=== PATIENT | female | born 1980 | race Caucasian/White ===

== ENCOUNTER 2016-08-20 00:31 | Emergency (ER) | payer BC ==
[2016-08-20 00:38] VITALS: TEMP 98.5
[2016-08-20] MEDS ORDERED: SODIUM CHLORIDE 0.9% 500 ML IV STA (00:50)
[2016-08-20] MEDS ORDERED: SODIUM CHLORIDE 0.9% 1,000 ML IV STA (00:50)
[2016-08-20] MEDS ORDERED: LORazepam 2 MG/ML SYRINGE IV STA (00:56)
[2016-08-20 01:46] LABS: Basophils # (A) 0.1 k/uL (0-0.2); Basophils % (A) 1 %; CH 33.5; CHCM 34.4; Eosinophils # (A) 0.1 k/uL (0-0.7); Eosinophils % (A) 1 %; HCT 45.2 % (34.0-46.0); HDW 2.12; HGB 15.4 gm/dL (11.4-16.0); Luc # (Auto) 0.19; Luc % (Auto) 2; Lymphocytes # (A) 3.2 k/uL (1.0-4.8); Lymphocytes % (A) 28 %; MCH 33.3 pg (25.0-35.0); MCHC 34.2 g/dL (31.0-37.0); MCV 97.6 fL (80.0-100.0); Mean Platelet Volume 6.8; Monocytes # (A) 0.5 k/uL (0-1.0); Monocytes % (A) 4 %; Neutrophils # (A) 7.6 k/uL (1.3-7.7); Neutrophils % (A) 66 %; RBC 4.63 m/uL (3.80-5.40); RDW 12.4 % (11.5-15.5); WBC 11.6 k/uL (3.8-10.6); WBC (Perox) 12.94
--- NOTE | 2016-08-20 01:54 | ED ---
General Adult HPI - General Chief complaint: Weakness Stated complaint: L Side Numbness Time Seen by Provider: 08/20/16 00:39 Source: patient, RN notes reviewed, old records reviewed Mode of arrival: wheelchair Limitations: no limitations - History of Present Illness Initial comments: [id number] female to the ER for evaluation of multiple nonspecific complaints, patient complaining of numbness and tingling left face left side of her body. Patient has history of neck and cervical surgery. No recent trauma. No specific neurological deficit just feeling or sensation of numbness. Patient states the pain in the symptoms started about 30 minutes prior to arrival. She is recently going and undergoing multiple medication changes. Denies any other headaches. - Related Data Home Medications Medication Instructions Recorded Confirmed Diazepam [Valium] 10 mg PO TID PRN 03/23/14 08/20/16 Ibuprofen [Motrin] 800 mg PO Q6HR PRN 03/23/14 08/20/16 oxyCODONE HCL/ACETAMINOPHEN 1 each PO Q6HR PRN 03/23/14 08/20/16 [Percocet 10-325 mg] Polyethylene Glycol 3350 [Miralax] 17 gm PO DAILY 03/15/16 08/20/16 Allergies Allergy/AdvReac Type Severity Reaction Status Date / Time codeine Allergy Rash/Hives Verified 08/20/16 00:38 tramadol HCl [From Ultracet] Allergy Itching Verified 08/20/16 00:38 duloxetine HCl AdvReac blurred Verified 08/20/16 00:38 [From Cymbalta] vision pregabalin [From Lyrica] AdvReac BLURRED Verified 08/20/16 00:38 VISION Review of Systems ROS Statement: Those systems with pertinent positive or pertinent negative responses have been documented in the HPI. ROS Other: All systems not noted in ROS Statement are negative. Past Medical History Additional Past Medical History / Comment(s): SLIGHT HEART MURMUR. SWOLLEN GROIN LYMPH NODES History of Any Multi-Drug Resistant Organisms: None Reported Past Surgical History: Tubal Ligation Additional Past Surgical History / Comment(s): NECK SX Past Anesthesia/Blood Transfusion Reactions: No Reported Reaction Past Psychological History: No Psychological Hx Reported Smoking Status: Current every day smoker Past Alcohol Use History: None Reported Additional Past Alcohol Use History / Comment(s): STARTED SMOKING AT AGE 13, SMOKES 1/2 PPD. Past Drug Use History: None Reported - Past Family History Father Family Medical History: Unable to Obtain Mother Family Medical History: Hyperlipidemia, Hypertension General Exam - General Exam Comments Initial Comments: NIH of 0 Limitations: no limitations General appearance: alert, in no apparent distress Head exam: Present: atraumatic, normocephalic, normal inspection Eye exam: Present: normal appearance, PERRL, EOMI. Absent: scleral icterus, conjunctival injection, periorbital swelling ENT exam: Present: normal exam, mucous membranes moist Neck exam: Present: normal inspection. Absent: tenderness, meningismus, lymphadenopathy Respiratory exam: Present: normal lung sounds bilaterally. Absent: respiratory distress, wheezes, rales, rhonchi, stridor Cardiovascular Exam: Present: regular rate, normal rhythm, normal heart sounds. Absent: systolic murmur, diastolic murmur, rubs, gallop, clicks GI/Abdominal exam: Present: soft, normal bowel sounds. Absent: distended, tenderness, guarding, rebound, rigid Extremities exam: Present: normal inspection, full ROM, normal capillary refill. Absent: tenderness, pedal edema, joint swelling, calf tenderness Back exam: Present: normal inspection Neurological exam: Present: alert, oriented X3, CN II-XII intact Psychiatric exam: Present: normal affect, normal mood Skin exam: Present: warm, dry, intact, normal color. Absent: rash Course Vital Signs 08/20/16 08/20/16 00:35 02:00 Temperature 98.5 F Pulse Rate 90 88 Respiratory 16 18 Rate Blood Pressure 138/83 126/72 O2 Sat by Pulse 97 96 Oximetry EKG Findings - EKG Comments: EKG Findings:: EKG shows normal sinus rhythm at 75, MD 140, QRS 92, QTC 402 Medical Decision Making - Medical Decision Making 36 female the ER for evaluation of weakness paresthesias left-sided facial weakness, patient symptoms actually are mildly improved at this time, lab work and CT negative. Patient will be discharged home - Lab Data Result diagrams: 08/20/16 01:30 08/20/16 01:30 Lab Results 08/20/16 08/20/16 08/20/16 Range/Units 01:30 01:30 01:30 WBC 11.6 H (3.8-10.6) k/uL RBC 4.63 (3.80-5.40) m/uL Hgb 15.4 (11.4-16.0) gm/dL Hct 45.2 (34.0-46.0) % MCV 97.6 (80.0-100.0) fL MCH 33.3 (25.0-35.0) pg MCHC 34.2 (31.0-37.0) g/dL RDW 12.4 (11.5-15.5) % Plt Count 218 (150-450) k/uL Neutrophils % 66 % Lymphocytes % 28 % Monocytes % 4 % Eosinophils % 1 % Basophils % 1 % Neutrophils # 7.6 (1.3-7.7) k/uL Lymphocytes # 3.2 (1.0-4.8) k/uL Monocytes # 0.5 (0-1.0) k/uL Eosinophils # 0.1 (0-0.7) k/uL Basophils # 0.1 (0-0.2) k/uL PT (9.0-12.0) sec INR (<1.1) APTT (22.0-30.0) sec Sodium 142 (137-145) mmol/L Potassium 3.5 (3.5-5.1) mmol/L Chloride 108 H (98-107) mmol/L Carbon Dioxide 22 (22-30) mmol/L Anion Gap 12 mmol/L BUN 11 (7-17) mg/dL Creatinine 0.80 (0.52-1.04) mg/dL Est GFR (MDRD) Af Amer >60 (>60 ml/min/1.73 sqM) Est GFR (MDRD) Non-Af >60 (>60 ml/min/1.73 sqM) Glucose 102 H (74-99) mg/dL Plasma Lactic Acid Cole (0.7-2.0) mmol/L Calcium 10.0 (8.4-10.2) mg/dL Phosphorus 2.5 (2.5-4.5) mg/dL Magnesium 2.1 (1.6-2.3) mg/dL Total Bilirubin 0.9 (0.2-1.3) mg/dL AST 20 (14-36) U/L ALT 19 (9-52) U/L Alkaline Phosphatase 38 (38-126) U/L Ammonia (<30) umol/L Total Creatine Kinase 89 (30-135) U/L CK-MB (CK-2) 0.9 (0.0-2.4) ng/mL CK-MB (CK-2) Rel Index 1.0 Troponin I <0.012 (0.000-0.034) ng/mL Total Protein 8.0 (6.3-8.2) g/dL Albumin 4.8 (3.5-5.0) g/dL TSH 1.920 (0.465-4.680) mIU/L Urine Color Urine Appearance (Clear) Urine pH (5.0-8.0) Ur Specific [place] (1.001-1.035) Urine Protein (Negative) Urine Glucose (UA) (Negative) Urine Ketones (Negative) Urine Blood (Negative) Urine Nitrite (Negative) Urine Bilirubin (Negative) Urine Urobilinogen (<2.0) mg/dL Ur Leukocyte Esterase (Negative) Urine RBC (0-5) /hpf Ur Squamous Epith Cells (0-4) /hpf Urine Bacteria (None) /hpf Urine Mucus (None) /hpf Urine Opiates Screen (NotDetected) Ur Oxycodone Screen (NotDetected) Urine Methadone Screen (NotDetected) Ur Propoxyphene Screen (NotDetected) Ur Barbiturates Screen (NotDetected) U Tricyclic Antidepress (NotDetected) Ur Phencyclidine Scrn (NotDetected) Ur Amphetamines Screen (NotDetected) U Methamphetamines Scrn (NotDetected) U Benzodiazepines Scrn (NotDetected) Urine Cocaine Screen (NotDetected) U Marijuana (THC) Screen (NotDetected) Serum Alcohol <10 mg/dL 08/20/16 08/20/16 08/20/16 Range/Units 01:30 01:30 01:58 WBC (3.8-10.6) k/uL RBC (3.80-5.40) m/uL Hgb (11.4-16.0) gm/dL Hct (34.0-46.0) % MCV (80.0-100.0) fL MCH (25.0-35.0) pg MCHC (31.0-37.0) g/dL RDW (11.5-15.5) % Plt Count (150-450) k/uL Neutrophils % % Lymphocytes % % Monocytes % % Eosinophils % % Basophils % % Neutrophils # (1.3-7.7) k/uL Lymphocytes # (1.0-4.8) k/uL Monocytes # (0-1.0) k/uL Eosinophils # (0-0.7) k/uL Basophils # (0-0.2) k/uL PT 10.5 (9.0-12.0) sec INR 1.0 (<1.1) APTT 26.3 (22.0-30.0) sec Sodium (137-145) mmol/L Potassium (3.5-5.1) mmol/L Chloride (98-107) mmol/L Carbon Dioxide (22-30) mmol/L Anion Gap mmol/L BUN (7-17) mg/dL Creatinine (0.52-1.04) mg/dL Est GFR (MDRD) Af Amer (>60 ml/min/1.73 sqM) Est GFR (MDRD) Non-Af (>60 ml/min/1.73 sqM) Glucose (74-99) mg/dL Plasma Lactic Acid Cole 0.8 (0.7-2.0) mmol/L Calcium (8.4-10.2) mg/dL Phosphorus (2.5-4.5) mg/dL Magnesium (1.6-2.3) mg/dL Total Bilirubin (0.2-1.3) mg/dL AST (14-36) U/L ALT (9-52) U/L Alkaline Phosphatase (38-126) U/L Ammonia <9 (<30) umol/L Total Creatine Kinase (30-135) U/L CK-MB (CK-2) (0.0-2.4) ng/mL CK-MB (CK-2) Rel Index Troponin I (0.000-0.034) ng/mL Total Protein (6.3-8.2) g/dL Albumin (3.5-5.0) g/dL TSH (0.465-4.680) mIU/L Urine Color Colorless Urine Appearance Clear (Clear) Urine pH 6.5 (5.0-8.0) Ur Specific [place] 1.001 (1.001-1.035) Urine Protein Negative (Negative) Urine Glucose (UA) Negative (Negative) Urine Ketones Negative (Negative) Urine Blood Small H (Negative) Urine Nitrite Negative (Negative) Urine Bilirubin Negative (Negative) Urine Urobilinogen <2.0 (<2.0) mg/dL Ur Leukocyte Esterase Negative (Negative) Urine RBC <1 (0-5) /hpf Ur Squamous Epith Cells <1 (0-4) /hpf Urine Bacteria Occasional H (None) /hpf Urine Mucus Rare H (None) /hpf Urine Opiates Screen Not Detected (NotDetected) Ur Oxycodone Screen Detected H (NotDetected) Urine Methadone Screen Not Detected (NotDetected) Ur Propoxyphene Screen Not Detected (NotDetected) Ur Barbiturates Screen Not Detected (NotDetected) U Tricyclic Antidepress Not Detected (NotDetected) Ur Phencyclidine Scrn Not Detected (NotDetected) Ur Amphetamines Screen Not Detected (NotDetected) U Methamphetamines Scrn Not Detected (NotDetected) U Benzodiazepines Scrn Detected H (NotDetected) Urine Cocaine Screen Not Detected (NotDetected) U Marijuana (THC) Screen Not Detected (NotDetected) Serum Alcohol mg/dL Disposition Clinical Impression: Paresthesia Disposition: HOME SELF-CARE Condition: Good Instructions: Paresthesia (ED) Referrals: Rico Sutton MD [Primary Care Provider] - 1-2 days
--- NOTE | 2016-08-20 02:03 | CT ---
PROCEDURE: CT HEAD Without Contrast HISTORY: 36-year-old female with weakness. COMPARISON: None TECHNIQUE: CT imaging was obtained through the head. Coronal and sagittal reformations were performed. DOSE: Total Exam volume computed tomography dose index (CTDIvol) = 57.4 mGy and Dose Length Product (DLP) = 1098.8 mGY-cm. This CT exam was performed using one or more of the following dose reduction techniques: automated exposure control, adjustment of the mA and/or kV according to patient size, and/or use of iterative reconstruction technique. FINDINGS: There is no evidence of acute intracranial hemorrhage, mass effect, or midline shift. The ventricles, sulci, and cisternal spaces are within normal limits. The bernardo-white matter differentiation is preserved. The bony structures are intact. Visualized paranasal sinuses and mastoid air cells are clear. Visualized portions of the orbits are within normal limits. IMPRESSION: 1. No CT evidence of acute intracranial abnormality.
[2016-08-20 02:04] LABS: Partial Thromboplastin Time 26.3 sec (22.0-30.0); Prothrombin Time 10.5 sec (9.0-12.0)
[2016-08-20 02:07] LABS: Creatine Kinase 89 U/L (30-135)
[2016-08-20 02:09] LABS: ALT 19 U/L (9-52); AST 20 U/L (14-36); Alcohol <10 mg/dL; Alkaline Phosphatase 38 U/L (38-126); Anion Gap 12 mmol/L; Blood Urea Nitrogen 11 mg/dL (7-17); Carbon Dioxide 22 mmol/L (22-30); Chloride 108 mmol/L (98-107); Glucose 102 mg/dL (74-99); Magnesium 2.1 mg/dL (1.6-2.3); Non-African American GFR(MDRD) >60 (>60 ml/min/1.73 sqM); Phosphorous 2.5 mg/dL (2.5-4.5); Potassium 3.5 mmol/L (3.5-5.1); Sodium 142 mmol/L (137-145); Total Bilirubin 0.9 mg/dL (0.2-1.3)
[2016-08-20 02:18] LABS: Ammonia <9 umol/L (<30)
[2016-08-20 02:18] LABS: Appearance,Urine Clear (Clear); Bacteria,Urine Occasional /hpf; Bilirubin,Urine Negative (Negative); Glucose,Urine (UA) Negative (Negative); Ketones,Urine Negative (Negative); Leukocyte Esterase,Urine Negative (Negative); Mucus,Urine Rare /hpf; Nitrite,Urine Negative (Negative); PH, Urine 6.5 (5.0-8.0); Particle Count 402; Protein,Urine Negative (Negative); RBC,Urine <1 /hpf (0-5); Specific Gravity,Urine 1.001 (1.001-1.035); Squamous Epithelial Cell,Urine <1 /hpf (0-4); UA Billing (MACRO vs. MICRO) MICRO; Urobilinogen,Urine <2.0 mg/dL (<2.0)
[2016-08-20 02:20] LABS: Creatine Kinase MB 0.9 ng/mL (0.0-2.4); Troponin I <0.012 ng/mL (0.000-0.034)
[2016-08-20 02:59] VITALS: BP 126/72; PULSE 88; RESP 18
== END 2016-08-20 02:50 | disposition home or self-care (01) ==
LOC: EC 00:31
DX: R20.2 Paresthesia of skin (principal); F17.200 Nicotine dependence, unspecified, uncomplicated; Z53.20 Procedure and treatment not carried out because of patient's decision for unspecified reasons; Z88.5 Allergy status to narcotic agent; Z88.6 Allergy status to analgesic agent; Z88.8 Allergy status to other drugs, medicaments and biological substances; Z79.899 Other long term (current) drug therapy
CPT/HCPCS: 36415; 70450; 80053; 80306; 80320; 81001; 82140; 82550; 82553; 83605; 83735; 84100; 84443; 84484; 85025; 85610; 85730; 87086; 93005; 96360; 99285

== ENCOUNTER → 2016-08-21 | Outpatient (CLI) | payer BC ==
--- NOTE | 2016-08-21 13:03 | MR ---
Thoracic spine MRI HISTORY: Radiculopathy Multiplanar multisequence imaging through the thoracic spine No comparisons Slight spinal curvature. There is no significant central canal stenosis or foraminal encroachment. No evident disc herniation. Thoracic vertebral bodies show preserved height, alignment, and bone marrow signal. Disc spaces are maintained. Thoracic cord signal is normal. There are some facet arthropathy changes present at the lower thoracic spine is some encroachment on the posterior lateral thecal sac . Postop changes noted incidentally in the cervical spine. IMPRESSION: Facet arthropathy. No evident disc herniation. There is a slight spinal curvature.
--- NOTE | 2016-08-21 14:25 | MR ---
EXAMINATION TYPE: MR cervical spine wo/w con DATE OF EXAM: 08/21/2016 11:01 AM COMPARISON: Prior cervical spine 03 May 2014 HISTORY: Radiculopathy, headache TECHNIQUE: Multiplanar, multisequence images of the cervical spine were acquired utilizing 10 mL intravenous Mul tiHance gadolinium contrast. Diffusion weighted imaging was performed. Susceptibility artifact due to patient's surgical hardware limits the evaluation of the exam. C2-C3: No evidence for degenerative disc disease. No disc bulge/herniation or protrusion. No Canal stenosis. Foramina are patent bilaterally. C3-C4: Suspect there is a posterior disc bulge causing anterior mass effect on the thecal sac, only m ild spinal stenosis, no significant foraminal encroachment. C4-C5: Limited for evaluation, no left-sided foraminal encroachment. C5-C6: Limited for evaluation, no definite foraminal encroachment. C6-C7: Small central posterior disc protrusion present. C7-T1: No evidence for degenerative disc disease. No disc bulge/herniation or protrusion. No Canal stenosis. Foramina are patent bilaterally. Cervical segments are intact. There is normal alignment. Cervical spinal cord is of normal signal. Craniovertebral junction relationships are within normal limits. Patient is status post disc replac ement at C4-5 and C5-6. There is no abnormal. IMPRESSION: Exam is limited evaluation due to hardware.
== END | disposition home or self-care (01) ==
LOC: RADMRIMAIN 09:48
PROVIDERS: ATTEND Nurse Practitioner Adult Health
DX: M46.96 Unspecified inflammatory spondylopathy, lumbar region (principal); M54.12 Radiculopathy, cervical region
CPT/HCPCS: 72146; 72156; A9577

== ENCOUNTER → 2018-01-15 | Outpatient (CLI) | payer BC ==
--- NOTE | 2018-01-16 07:22 | US ---
EXAMINATION TYPE: US kidneys/renal and bladder DATE OF EXAM: 01/15/2018 COMPARISON: CT CLINICAL HISTORY: R31.9 hematuria. EXAM MEASUREMENTS: Right Kidney: 9.7 x 4.3 x 4.9 cm Left Kidney: 11.1 x 6.4 x 6.3 cm Right Kidney: There is mild pelvicocaliectasis on the right. Left Kidney: No hydronephrosis or masses seen Bladder: wnl Bilateral Jets seen: Yes IMPRESSION: Mild pelvicocaliectasis on the right. If symptoms persist consider follow-up noncontrast CT abdomen p linh
== END | disposition home or self-care (01) ==
LOC: RADUSWWP 16:11
PROVIDERS: ATTEND Family Medicine
DX: N28.89 Other specified disorders of kidney and ureter (principal)
CPT/HCPCS: 76770

== ENCOUNTER → 2018-02-03 | Outpatient (CLI) | payer BC ==
--- NOTE | 2018-02-03 09:09 | CT ---
EXAMINATION TYPE: CT abdomen wo con DATE OF EXAM: 02/03/2018 COMPARISON: 08/16/2015 and renal ultrasound 01/15/2018 HISTORY: 37-year-old female Pain started on the Lt radiates to the Rt TECHNIQUE: Contiguous axial scanning of the abdomen without IV contrast. Coronal and sagittal reconst ructions performed. CT DLP: 161 mGycm Automated exposure control for dose reduction was used. FINDINGS: Heart normal size without pericardial effusion. Lung bases clear without pleural effusion. Noncontrast appearance of the liver, adrenal glands, kidneys, spleen, and pancreas show no gross abno rmality. Assessment of the solid abdominal viscera is limited without IV contrast. With attention to the kidneys, no contour deforming lesion, renal calculi, or hydronephrosis is seen. The pelvocaliectasis seen on recent ultrasound has resolved. No dilated small bowel, free fluid, or free air. Scattered eogk-ou-cacdsces stool. No pericolonic inf lammatory change within the visualized upper abdomen. The pelvis is not imaged. Bones: No osseous destructive process. IMPRESSION: CT OF THE ABDOMEN ONLY. NO NEPHROLITHIASIS OR HYDRONEPHROSIS. THE PELVICALIECTASIS SEEN ON THE PATIEN T'S RECENT ULTRASOUND HAS RESOLVED.
== END | disposition home or self-care (01) ==
LOC: RADCTMAIN 06:56
PROVIDERS: ATTEND Family Medicine
DX: N20.0 Calculus of kidney (principal)
CPT/HCPCS: 74150

== ENCOUNTER → 2018-06-15 | Outpatient (CLI) | payer BC ==
--- NOTE | 2018-06-15 10:10 | US ---
EXAMINATION TYPE: US abdomen complete DATE OF EXAM: 06/15/2018 COMPARISON: CT & US 2018 CLINICAL HISTORY: R10.9 Abdominal Pain. Intermittent abdomen and back pain and nausea x couple months EXAM MEASUREMENTS: Liver Length: 14.6 cm Gallbladder Wall: 0.1 cm CBD: 0.4 cm Spleen: 10.0 cm Right Kidney: 10.4 x 4.8 x 4.7 cm Left Kidney: 10.9 x 5.4 x 4.5 cm Pancreas: wnl Liver: wnl Gallbladder: wnl Evidence for sonographic Hook's sign: no CBD: wnl Spleen: wnl Right Kidney: wnl Left Kidney: wnl Upper IVC: wnl Abd Aorta: wnl The liver is homogenous. The intrahepatic portion of the IVC and proximal abdominal aorta are within normal limits. There is no evidence of cholelithiasis. Common bile duct is unremarkable. The visu alized portions of the pancreas are homogenous. The spleen is unremarkable. Kidneys are symmetric a nd free of hydronephrosis. No renal lesions are seen. IMPRESSION: No sonographic evidence of cholelithiasis nor acute cholecystitis. HIDA scan with CCK cou ld be performed to evaluate for biliary dyskinesia and/or chronic cholecystitis if there is further c linical concern.
== END ==
LOC: RADUSWWP 07:38
PROVIDERS: ATTEND Internal Medicine
DX: R10.9 Unspecified abdominal pain (principal)
CPT/HCPCS: 76700

== ENCOUNTER → 2018-07-14 | Outpatient (CLI) | payer BC ==
--- NOTE | 2018-07-15 07:33 | US ---
EXAMINATION TYPE: US transvaginal DATE OF EXAM: 07/14/2018 COMPARISON: US CLINICAL HISTORY: N92.0 Menorrhagia. Patient state had 3 weeks on menstrual cycle for June; on medic ation Percocet and Pepcid; was taking Naprosyn which was recently discontinued per physician TECHNIQUE: Transvaginal (TV). per order. Date of LMP: 06/19/18 EXAM MEASUREMENTS: Uterus: 7.9 x 5.7 x 5.4 cm Endometrial Stripe: 1.2 cm Right Ovary: 4.1 x 2.4 x 2.2 cm Left Ovary: 3.2 x 2.1 x 2.0 cm 1. Uterus: Small Nabothian cyst seen in cervix; prominent vein is noted at KVNG and laterally and sug gests pelvic congestion syndrome 2. Endometrium: thickness is wnl for day 26 LMP 3. Right Ovary:enlarged ovary; large simple cyst = 3.7 x 2.0 x 1.5cm 4. Left Ovary: multifollicular with largest as simple cyst = 2.1 x 1.6 x 1.1cm. 5. Bilateral Adnexa: small amount of free fluid seen medial to right ovary = 1.2 x 0.7 x 0.8cm; and medial to left ovary = 0.6 x 3.0 x 1.8cm. 6. Posterior cul-de-sac: wnl IMPRESSION: 1. A small amount of free fluid in the pelvis with multiple bilateral ovarian cysts the largest is se en on the right measuring 3.7 cm. 2. Prominent pelvic veins can be associated with pelvic varices or pelvic congestion syndrome.
== END | disposition home or self-care (01) ==
LOC: RADUSWWP 16:20
PROVIDERS: ATTEND Family Medicine
DX: N83.201 Unspecified ovarian cyst, right side (principal); N83.202 Unspecified ovarian cyst, left side
CPT/HCPCS: 76830

== ENCOUNTER 2018-11-12 08:00 | Day surgery (SDC) | payer BC ==
[~2018-11-12 08:00] MED LIST: PREMYELOGRAM MEDICATION REVIEW 1 EACH MISC PO PRN
[2018-11-12] MEDS ORDERED: DIAZEPAM 5 MG TAB PO STA (08:45)
[2018-11-12 08:56] LABS: Mean Platelet Volume 7.6; Platelet Count 270 k/uL (150-450)
[2018-11-12 09:02] VITALS: TEMP 98.1
[2018-11-12] MEDS: HYDROcodone/APAP 5-325MG 1 EACH TAB PO PRN ×2 (10:33→12:59)
--- NOTE | 2018-11-12 10:35 | CT ---
EXAMINATION TYPE: CT cervical spine postmyelogram DATE OF EXAM: 11/12/2018 COMPARISON: MRI 08/21/2016 HISTORY: Cervical Radiculopathy CT DLP: 283.6 mGycm Automated exposure control for dose reduction was used. CONTRAST: Performed with IV Contrast, patient injected with 7 cc mL of Isovue M300. FINDINGS: There is contrast seen within the thecal sac surrounding the cervical spinal cord. There is evidence of postsurgical change at levels C4-5 and C5-C6. Straightening of the cervical spine likely is postsu rgical. At C2-C3 no disc herniation or canal stenosis. Neural foramina patent. C3-C4 there is anterior hypertrophic spurring. Minimal central disc bulging. No canal stenosis or spi nal cord contact. Neural foramina are patent. Mild uncovertebral joint hypertrophy bilaterally. At C4-C5 there is postsurgical change. There is artifact which does distort the image but grossly no evidence of disc herniation or foraminal encroachment. No Canal stenosis. At C5-C6 there is postsurgical change. No obvious disc herniation or canal stenosis. At C6-C7 there is a attenuation broad-based left paracentral which could represent a small disc protr usion. There is indentation of the thecal sac. No spinal cord contact is seen although there is displ acement of the thecal sac. Best noted on axial image 59 and sagittal image 37. At C7-T1 there is no disc herniation or canal stenosis. IMPRESSION: 1. Postsurgical changes with no evidence of disc herniation or canal stenosis at the levels of the ponce rgery. 2. There is a left paracentral broad-based thecal sac impression at C6-C7 as discussed above may repr esent a disc herniation. This effaces the thecal sac paracentrally to left. No spinal cord contact al though there is displacement of the thecal sac and its contents. 3. Small broad-based central disc bulge C3-C4 with no evidence of canal stenosis. Mild thecal sac com pression is stable relative to the prior MRI.
--- NOTE | 2018-11-12 10:48 | FL ---
Fluoroscopic-guided myelogram: CLINICAL HISTORY: Neck pain FINDINGS: The procedure was explained to the patient. The risks, complications, benefits and alternatives were discussed and any questions were answered. Informed consent was obtained. Patient was placed prone on the fluoroscopic table and prepped and draped in the usual sterile fashion. Utilizing a 25 gauge needle access into the thecal sac at the L3-L4 level was achieved with a single pass and there is in stillation of approximately 7 cc of Omnipaque 300. Patient was premedicated for history of allergy. Approximately 2.4 minutes of fluoroscopy utilized. Contrast column was manipulated into the cervical spine region. Patient was stable throughout the procedure. Approximately 4 images submitted. All elements of maximal barrier and sterile technique were utilized. IMPRESSION: 1. Successful fluoroscopic-guided myelogram. CT to follow.
[2018-11-12 14:42] VITALS: PULSE 78
[2018-11-12 16:55] VITALS: BP 107/67; RESP 20
== END 2018-11-12 14:00 | disposition home or self-care (01) ==
LOC: RADPROMAIN 08:00
PROVIDERS: ATTEND Family Medicine
DX: M50.11 Cervical disc disorder with radiculopathy, high cervical region (principal)
CPT/HCPCS: 85049; 85610; 36415; 62302; 72126; Q9967

== ENCOUNTER → 2018-11-30 | Outpatient (CLI) | payer BC | END | disposition home or self-care (01) | LOC: RADNMMAIN 06:55 | PROVIDERS: ATTEND Surgery Plastic and Reconstructive Surgery | DX: Z53.9 Procedure and treatment not carried out, unspecified reason (principal) ==

== ENCOUNTER 2018-12-16 08:36 | Day surgery (SDC) | payer BC ==
[2018-12-15 08:47] VITALS: BMI 18.0
[~2018-12-16 08:36] MED LIST changes: +LACTATED RINGERS 1,000 ML IV SCH; -PREMYELOGRAM MEDICATION REVIEW 1 EACH MISC PO PRN
[2018-12-16 09:08] VITALS: RESP 18; TEMP 98.2
[2018-12-16] MEDS ORDERED: LIDOCAINE 1% 20 ML VIAL (10MG/ML) FOR IV START INTRADERMA ONE (09:08)
[2018-12-16] MEDS ORDERED: PROPOFOL 10 MG/ML 20 ML VIAL IV ONE (09:16)
[2018-12-16] MEDS ORDERED: LIDOCAINE 1% INJ 10MG/ML (20 ML MDV) ONE (09:16)
--- NOTE | 2018-12-16 09:20 | P.GSHP ---
History of Present Illness H&P Date: 12/16/18 CHIEF COMPLAINT: GERD and change in bowel habits HISTORY OF PRESENT ILLNESS: The patient is a 38-year-old female who presents with gastroesophageal reflux disease and change in bowel habits. Upper and lower endoscopy were offered for further evaluation and management. PAST MEDICAL HISTORY: Please see list. PAST SURGICAL HISTORY: Please see list. MEDICATIONS: Please see list. ALLERGIES: Please see list. SOCIAL HISTORY: No illicit drug use FAMILY HISTORY: No reports of Crohn disease or ulcerative colitis. REVIEW OF ORGAN SYSTEMS: CONSTITUTIONAL: No reports of fevers or chills. PHYSICAL EXAM: VITAL SIGNS: Stable GENERAL: Well-developed pleasant in no acute distress. HEENT: No scleral icterus. Extraocular movements grossly intact. Moist buccal mucosa. NECK: Supple without lymphadenopathy. CHEST: Unlabored respirations. Equal bilateral excursions. CARDIOVASCULAR: Regular rate and rhythm. Distal 2+ pulses. ABDOMEN: Soft, nondistended. MUSCULOSKELETAL: No clubbing, cyanosis, or edema. ASSESSMENT: 1. Gastroesophageal reflux disease 2. Change in bowel habits PLAN: 1. Recommend proceeding with an upper and lower endoscopy Past Medical History Past Medical History: Fibromyalgia, GERD/Reflux, Musculoskeletal Disorder Additional Past Medical History / Comment(s): heart murmur, swollen groin lymph nodes, back/neck pain, fast heart rate at times, frequent epigastric pain History of Any Multi-Drug Resistant Organisms: None Reported Past Surgical History: Tubal Ligation Additional Past Surgical History / Comment(s): neck surgery, lymph node biopsy Past Anesthesia/Blood Transfusion Reactions: Previous Problems w/ Anesthesia Additional Past Anesthesia/Blood Transfusion Reaction / Comment(s): possibly a problem w/versed, might have had during lymph node biopsy had to be given benadryl during procedure Smoking Status: Current every day smoker - Past Family History Father Family Medical History: Cancer, Hypertension Additional Family Medical History / Comment(s): lung cancer Mother Family Medical History: Hyperlipidemia, Hypertension Medications and Allergies Home Medications Medication Instructions Recorded Confirmed Type oxyCODONE HCL/ACETAMINOPHEN 1 each PO TID PRN 03/23/14 12/16/18 History [Percocet 10-325 mg] Propranolol [Inderal] 10 mg PO BID PRN 11/04/18 12/16/18 History Allergies Allergy/AdvReac Type Severity Reaction Status Date / Time codeine Allergy Rash/Hives Verified 12/16/18 08:52 Iodinated Contrast- Oral and Allergy Rash/Hives Verified 12/16/18 08:52 IV Dye tramadol HCl [From Ultracet] Allergy Itching Verified 12/16/18 08:55 duloxetine HCl AdvReac blurred Verified 12/16/18 08:52 [From Cymbalta] vision midazolam [From Versed] AdvReac Unknown Verified 12/16/18 08:55 pregabalin [From Lyrica] AdvReac BLURRED Verified 12/16/18 08:52 VISION Surgical - Exam Vital Signs Temp Pulse Resp BP Pulse Ox 98.2 F 94 18 115/63 99 12/16/18 09:07 12/16/18 09:07 12/16/18 09:07 12/16/18 09:07 12/16/18 09:07
--- NOTE | 2018-12-16 09:32 | P.PCN ---
Date of Procedure: 12/16/18 Description of Procedure: PREOPERATIVE DIAGNOSIS: Gastroesophageal reflux disease. POSTOPERATIVE DIAGNOSIS: Gastritis. Gastroesophageal reflux disease. OPERATION: Esophagogastroduodenoscopy with biopsies along antrum. SURGEON: Katya Ornelas MD ANESTHESIA: MAC. INDICATIONS: The patient is a 38-year-old female who presents with a history of reflux disease. Benefits and risks of the procedure were described. Informed consent was obtained. DESCRIPTION: The patient was brought into the endoscopy suite and laid in the left lateral decubitus position. An Olympus gastroscope was passed along the posterior oropharynx down to the distal esophagus where the squamocolumnar junction was encountered at 40 cm from the incisors. The stomach was entered and no bile reflux was found. Additional findings are listed below. Biopsies with cold forceps were obtained of the antrum. The first through third portion of the duodenum was examined and unremarkable. Retroflexion of the scope confirmed Hill grade 2 lower esophageal valve. The squamocolumnar junction demonstrated LA grade B erosive esophagitis. The stomach was desufflated. The patient tolerated the procedure well. FINDINGS: Squamocolumnar junction 40 cm from the incisors. Diaphragmatic hiatus at 40 cm. Hill grade 2 lower esophageal valve. LA grade B erosive esophagitis. No active duodenitis. Chronic gastritis RECOMMENDATIONS: Upper endoscopy as needed.
--- NOTE | 2018-12-16 09:46 | P.PCN ---
Date of Procedure: 12/16/18 Description of Procedure: PREOPERATIVE DIAGNOSIS: Change in bowel habits POSTOPERATIVE DIAGNOSIS: Change in bowel habits OPERATION: Colonoscopy to the ileocecal valve and appendiceal orifice. SURGEON: Katya Ornelas MD. ANESTHESIA: MAC. INDICATIONS: The patient is a 38-year-old female who presents with change in bowel habits. Benefits and risks were described and informed consent was obtained. DESCRIPTION OF PROCEDURE: The patient had undergone Suprep. She had been brought into the operating room and laid in the left lateral decubitus position. After adequate intravenous sedation, the rectum was examined with 2% lidocaine jelly. No external hemorrhoids were encountered. The rectal tone was within normal limits. No lesions were palpated in the rectal vault. An Olympus colonoscope was advanced until the ileocecal valve and appendiceal orifice were clearly viewed. The prep was excellent with clear visualization of the mucosal folds. The scope was removed with visualization of each mucosal fold. No scattered diverticulosis was encountered. No colonic polyps were found. No evidence of focal colitis was found. Retroflexion of the scope demonstrated no internal hemorrhoids without active bleeding or inflammation. The colon was desufflated. The patient had tolerated the procedure well. Withdrawal time was over 6 minutes. FINDINGS: Aronchick preparation quality scale 1 (1-5) No internal hemorrhoids No external prolapsed hemorrhoids. No arteriovenous malformations. No adenomatous polyps. No focal colitis. RECOMMENDATIONS: Lower endoscopy per screening guidelines, 5-10 years, 2023 to 2028 Plan - Discharge Summary Discharge Rx Participant: No New Discharge Prescriptions: No Action oxyCODONE HCL/ACETAMINOPHEN [Percocet 10-325 mg] 1 each PO TID PRN PRN Reason: Pain Propranolol [Inderal] 10 mg PO BID PRN PRN Reason: Heart Rate - High Discharge Medication List oxyCODONE HCL/ACETAMINOPHEN [Percocet 10-325 mg] 1 each PO TID PRN 03/23/14 [History] Propranolol [Inderal] 10 mg PO BID PRN 11/04/18 [History] Follow up Appointment(s)/Referral(s): Katya Ornelas MD [STAFF PHYSICIAN] - 01/05/19 Patient Instructions/Handouts: Gastroesophageal Reflux Disease (DC) Activity/Diet/Wound Care/Special Instructions: Repeat lower endoscopy at age 43 to 48 Discharge Disposition: HOME SELF-CARE
[2018-12-16 10:36] VITALS: BP 103/60; PULSE 82
== END 2018-12-16 10:38 | disposition home or self-care (01) ==
LOC: ORWHC2ENDO 08:36
PROVIDERS: ATTEND Surgery Plastic and Reconstructive Surgery
DX: K22.10 Ulcer of esophagus without bleeding (principal); K29.50 Unspecified chronic gastritis without bleeding; R19.4 Change in bowel habit; K21.9 Gastro-esophageal reflux disease without esophagitis; M79.7 Fibromyalgia; F17.210 Nicotine dependence, cigarettes, uncomplicated; R01.0 Benign and innocent cardiac murmurs; Z98.51 Tubal ligation status; Z82.49 Family history of ischemic heart disease and other diseases of the circulatory system; Z80.1 Family history of malignant neoplasm of trachea, bronchus and lung; Z79.891 Long term (current) use of opiate analgesic; Z88.5 Allergy status to narcotic agent; Z88.8 Allergy status to other drugs, medicaments and biological substances; Z91.041 Radiographic dye allergy status
CPT/HCPCS: 81025; 88305; 45378; 43239; J2001; J2704

== ENCOUNTER → 2021-06-26 | Outpatient (CLI) | payer BC ==
--- NOTE | 2021-06-26 16:34 | US ---
EXAMINATION TYPE: US transvaginal DATE OF EXAM: 06/26/2021 COMPARISON: 07/14/2018 CLINICAL HISTORY: 41-year-old female R10.2 Pelvic pain. Pelvic pain x couple months, 4, para 3, history of tubal ligation TECHNIQUE: Transvaginal exam only per ordering physician Date of LMP: 2-3 weeks ago FINDINGS: EXAM MEASUREMENTS: Uterus: 8.6 x 5.1 x 6.2 cm Endometrial Stripe: 1.4 cm Right Ovary: 4.2 x 1.5 x 1.9 cm Left Ovary: 4.7 x 1.8 x 2.0 cm 1. Uterus: retroverted, mildly heterogeneous myometrium 2. Endometrium: measures at the upper limits of normal 3. Right Ovary: wnl 4. Left Ovary: wnl 5. Bilateral Adnexa: Mild free fluid in right adnexa 6. Posterior cul-de-sac: Trace free fluid IMPRESSION: 1. Retroverted uterus with endometrial stripe is thickened to the upper limits of normal at 1.4 cm. T his should correspond to the late secretory phase of the menstrual cycle. 2. Follicular change in both ovaries. 3. Trace cul-de-sac free fluid and mild free fluid in the right adnexa probably physiologic.
== END | disposition home or self-care (01) ==
LOC: RADUSWWP 12:59
PROVIDERS: ATTEND Family Medicine
DX: N85.4 Malposition of uterus (principal)
CPT/HCPCS: 76830

== ENCOUNTER → 2021-11-28 | Outpatient (CLI) | payer BC ==
--- NOTE | 2021-11-29 07:17 | US ---
EXAMINATION TYPE: US thyroid st tissue head/neck DATE OF EXAM: 11/28/2021 COMPARISON: NONE CLINICAL HISTORY: F45.8 SOMATOFORM DISORDERS. Patient states feeling something in neck. GLAND SIZE: Right Lobe: 4.5 x 1.6 x 1.3 cm Overall Parenchyma: homogenous Left Lobe: 4.2 x 1.7 x 1.6 cm Overall Parenchyma: homogeneous Isthmus Thickness: 0.2 cm NODULES RIGHT: # of nodules measured on right: 3 1. 0.7 X 0.5 x 0.4 cm, upper mid, mixed cystic and solid, isoechoic nodule, which is wider than silas l, with ill-defined margins, without echogenic foci. Prior size: no prior 2. 0.8 X 0.6 x 0.5 cm, mid , mixed cystic and solid, isoechoic nodule, which is wider than tall, wi th ill-defined margins, without echogenic foci. Prior size: No prior 3. 1.0 X 0.7 x 0.7 cm, mid lateral, mixed cystic and solid, hyperechoic nodule, which is wider than tall, with smooth margins, without echogenic foci. Prior size: No prior LEFT: # of nodules measured on left: 3 1. 1.2 X 1.0 x 0.9 cm, upper mid, mixed cystic and solid, hyperechoic nodule, which is wider than t all, with ill-defined margins, without echogenic foci. Prior size: no prior 2. 0.8 X 0.5 x 0.5 cm, mid lateral, mixed cystic and solid, hypoechoic nodule, which is wider than tall, with ill-defined margins, without echogenic foci. Prior size: no prior 3. 0.6 X 0.8 x 0.4 cm, lower mid, cystic or almost completely cystic, anechoic nodule, which is wid er than tall, with smooth margins, without echogenic foci. Prior size: no prior ISTHMUS: # of nodules measured in the isthmus: 0 Bilateral neck scanned, no evidence of lymphadenopathy. IMPRESSION: Stable nonspecific thyroid nodularity.
== END | disposition home or self-care (01) ==
LOC: RADUSWWP 15:47
PROVIDERS: ATTEND Family Medicine
DX: E04.2 Nontoxic multinodular goiter (principal); F45.8 Other somatoform disorders
CPT/HCPCS: 76536

== ENCOUNTER → 2022-01-03 | Outpatient (CLI) | payer BC ==
--- NOTE | 2022-01-03 17:21 | CT ---
EXAMINATION TYPE: CT abdomen pelvis wo con CT DLP: 497 mGycm, Automated exposure control for dose reduction was used. DATE OF EXAM: 01/03/2022 5:11 PM COMPARISON: CT abdomen pelvis most recent from . CLINICAL INDICATION:Female, 41 years old with history of Z87.891 personal hx of tobacco use; abdomina l pain poss. Ventral hernia TECHNIQUE: Standard CT of the abdomen and pelvis without IV or oral contrast. Lack of IV or oral co ntrast limits evaluation of solid and hollow organ viscera. Coronal and sagittal reformats were perfo rmed. FINDINGS: Evaluation is limited due to paucity of intraabdominal fat and lack of IV contrast. LOWER CHEST: Right middle lobe and lingular scarring. ABDOMEN LIVER: Unremarkable noncontrast appearance. GALLBLADDER AND BILE DUCTS: Contracted gallbladder. No biliary ductal dilatation. PANCREAS: Unremarkable noncontrast appearance.. SPLEEN: Unremarkable noncontrast appearance.. ADRENAL GLANDS: Unremarkable noncontrast appearance. KIDNEYS AND URETERS: No evidence of hydronephrosis or renal calculus. No definitive calculi along the expected course the ureters. PELVIS BLADDER: Under distended, limiting evaluation. REPRODUCTIVE: Surgical clips demonstrated within the left adnexa.. ABDOMEN & PELVIS STOMACH AND BOWEL: Stomach and duodenum are unremarkable. No focal wall thickening. The appendix is w ithin normal limits. No evidence of bowel obstruction. PERITONEUM: No evidence of pneumoperitoneum or free fluid. VASCULATURE: Mild atherosclerotic calcifications are present throughout the abdominal aorta and its b ranches. No evidence of aortic aneurysm. MUSCULOSKELETAL: No acute osseous abnormalities LYMPH NODES: No gross evidence for lymphadenopathy. SOFT TISSUE/ABDOMINAL WALL: Tiny fat filled umbilical hernia. No inguinal hernia. IMPRESSION: 1. No acute abdominal/pelvic process within limitations of a noncontrast exam. 2. Tiny fat filled umbilical hernia.
== END | disposition home or self-care (01) ==
LOC: RADCTMAIN 16:31
PROVIDERS: ATTEND Family Medicine
DX: K42.9 Umbilical hernia without obstruction or gangrene (principal)
CPT/HCPCS: 74176

== ENCOUNTER → 2022-01-04 | Outpatient (CLI) | payer BC ==
[2022-01-04 10:57] LABS: Basophils # (A) 0.03 X 10*3/uL (0.00-0.10); Basophils % (A) 0.4 %; Eosinophils # (A) 0.07 X 10*3/uL (0.04-0.35); HCT 39.1 % (37.2-46.3); HGB 13.5 g/dL (12.0-15.0); Immature Grans, Automated 0.3 %; Lymphocytes # (A) 2.41 X 10*3/uL (0.90-5.00); Lymphocytes % (A) 34.7 %; MCH 32.9 pg (27.0-32.0); MCHC 34.5 g/dL (32.0-37.0); MCV 95.4 fL (80.0-97.0); Mean Platelet Volume 9.9 fL (9.5-12.2); Monocytes # (A) 0.46 X 10*3/uL (0.20-1.00); Monocytes % (A) 6.6 %; NRBC Per 100 WBC 0 /100 WBCS (0.0-0.0); Neutrophils # (A) 3.95 X 10*3/uL (1.80-7.70); Platelet Count 220 X 10*3/uL (140-440); RDW 11.8 % (11.5-14.5); WBC 6.94 X 10*3/uL (4.50-10.00)
[2022-01-04 11:05] LABS: African American GFR (CKD) 90.8 (60.0-200.0); Albumin 4.3 g/dL (3.8-4.9); Albumin/Globulin Ratio 1.87 (1.60-3.17); Anion Gap 8.5 mmol/L (10.00-18.00); BUN/Creat Ratio 11.89 Ratio (12.00-20.00); Blood Urea Nitrogen 10.7 mg/dL (9.0-27.0); Calcium 9.3 mg/dL (8.7-10.3); Carbon Dioxide 26.5 mmol/L (20.0-27.5); Globulin 2.3 g/dL (1.6-3.3); Non-African American GFR(CKD) 78.3 (60.0-200.0); Potassium 3.8 mmol/L (3.5-5.5); Total Bilirubin 0.7 mg/dL (0.30-1.20); Total Protein 6.6 g/dL (6.2-8.2)
== END | disposition home or self-care (01) ==
LOC: LABWHC1 08:10
PROVIDERS: ATTEND Nurse Practitioner Adult Health
DX: K43.9 Ventral hernia without obstruction or gangrene (principal)
CPT/HCPCS: 36415; 80053; 85025

== ENCOUNTER → 2022-01-07 | Outpatient (CLI) | payer BC ==
--- NOTE | 2022-01-07 11:55 | FL ---
EXAMINATION TYPE: FL barium swallow w video DATE OF EXAM: 01/07/2022 MODIFIED SWALLOW / DEGLUTITION STUDY CLINICAL HISTORY: Dysphagia. History of prior neck surgery. TECHNIQUE: Deglutition study is performed utilizing thin liquid barium, honey and nectar thick liqui d barium, barium thick applesauce, and barium coated cracker. 56 seconds of fluoro time and 0 images obtained. COMPARISON: None. FINDINGS: The oral and pharyngeal phases show satisfactory initiation and propagation with all modali ties tested. Normal mastication is seen with solid modalities tested. There is no evidence of penet ration or aspiration with any modality tested. No significant pharyngeal residue was appreciated. Po stsurgical changes C4-C5 and C5-C6 level with metallic disc spacers are noted. IMPRESSION: No penetration or aspiration observed. Please refer to speech therapist notes for furthe r details if necessary.
== END | disposition home or self-care (01) ==
LOC: RADFLMAIN 10:30
PROVIDERS: ATTEND Otolaryngology
DX: R13.10 Dysphagia, unspecified (principal)
CPT/HCPCS: 74230

== ENCOUNTER → 2023-03-28 | Outpatient (CLI) | payer BC ==
--- NOTE | 2023-03-31 16:13 | MM ---
Reason for Exam: Screening (asymptomatic). Baseline mammogram. Patient History: Menarche at age 14. First Full-Term at age 18. Paternal cousin had ovarian cancer. Last menstrual period: 03/27/2023 Risk Values: Nurys 5 year model risk: 0.6%. NCI Lifetime model risk: 8.0%. Prior Study Comparison: Patient's first Mammogram. No prior studies available for comparison. Tissue Density: The breast tissue is extremely dense which could obscure a lesion on mammography. Findings: Analyzed By CAD. Pattern appears symmetrical No suspicious groups of microcalcifications, spiculated or lobular masses, architectural distortion or other secondary signs of malignancy are mammographically apparent. Overall Assessment: Negative, BI-RAD 1 Management: Screening Mammogram of both breasts in 1 year. A negative mammogram report should not preclude additional follow up of suspicious palpable abnormalities. Patient should continue monthly self breast exam. A clinical breast exam by your physician is recommended on an annual basis and results should be correlated with mammographic findings. Electronically signed and approved by: Claudio Ramos D.O. Radiologis
== END | disposition home or self-care (01) ==
LOC: RADMAMWWP 11:56
PROVIDERS: ATTEND Family Medicine
DX: Z12.31 Encounter for screening mammogram for malignant neoplasm of breast (principal)
CPT/HCPCS: 77063; 77067

== ENCOUNTER → 2023-04-21 | Outpatient (CLI) | payer BC ==
--- NOTE | 2023-04-21 13:06 | US ---
EXAMINATION TYPE: US thyroid st tissue head/neck DATE OF EXAM: 04/21/2023 COMPARISON: NONE CLINICAL INDICATION: Female, 42 years old with history of E04.1 NONTOXIC SINGLE THYROID NODULE; F/U t hyroid nodules GLAND SIZE: Right Lobe: 5.4x1.6x1.6 cm Overall Parenchyma: homogeneous Left Lobe: 5.8x1.7x1.9cm Overall Parenchyma: homogeneous Isthmus Thickness: 0.3 cm NODULES RIGHT: # of nodules measured on right: 3 1. 0.7 X 0.5 x 0.5 cm, upper mid, mixed cystic and solid, hypoechoic nodule, which is wider than ta ll, with ill-defined margins, without echogenic foci. Prior size: 0.7 x 0.4 x 0.5 cm 2. 0.9 X 0.6 x 0.7 cm, mid mid, mixed cystic and solid, hypoechoic nodule, which is wider than tall , with ill-defined margins, without echogenic foci. Prior size: 0.8 x 0.4 x 0.6 cm 3. 1.0 X 0.7 x 0.9 cm, mid lateral, mixed cystic and solid, hypoechoic nodule, which is wider than tall, with ill-defined margins, without echogenic foci. Prior size: 1.0 x 0.7 x 0.7 cm LEFT: # of nodules measured on left: 3 1. 1.4 X 0.8 x 1.1 cm, upper mid, mixed cystic and solid, hypoechoic nodule, which is wider than ta ll, with ill-defined margins, without echogenic foci. TR 3 Prior size: 1.2 x 0.9 x 1.0 cm 2. 1.0 X 0.6 x 0.7 cm, mid mid, mixed cystic and solid, hypoechoic nodule, which is wider than silas l, with ill-defined margins, without echogenic foci. Prior size: 0.8 x 0.5 x 0.5 cm 3. 0.6 X 0.5 x 0.7 cm, lower lateral, mixed cystic and solid, isoechoic nodule, which is wider than tall, with ill-defined margins, without echogenic foci. Prior size: 0.6 x 0.4 x 0.8 cm ISTHMUS: # of nodules measured in the isthmus: 0 Bilateral neck scanned, no evidence of lymphadenopathy. IMPRESSION: Mildly suspicious nodule left lobe thyroid 2017 ACR TI-RADS LEVEL: TR-RADS 3 - Mildly Suspicious: Follow if > 1.5 cm, FNA if > 2.5 cm *Highest TI-RADS level nodule reported
== END | disposition home or self-care (01) ==
LOC: RADUSWWP 12:15
PROVIDERS: ATTEND Family Medicine
DX: E04.1 Nontoxic single thyroid nodule (principal)
CPT/HCPCS: 76536

== ENCOUNTER → 2023-06-03 | Outpatient (CLI) | payer BC ==
--- NOTE | 2023-06-03 15:03 | US ---
EXAMINATION TYPE: US abdomen limited DATE OF EXAM: 06/03/2023 COMPARISON: None CLINICAL INDICATION: Female, 43 years old with history of R19.00 INTRA-ABD AND PELVIC SWELLING, MASS AND LUM; Hx of umbilical hernia. No palpable. Assess for hernia at location of: Umbilicus FINDINGS AND IMPRESSION: Chemical Processing Laborer notes: Area of concern scanned. Possible small umbilical hernia visualized = 3.3 mm. Natacha jesús performed with movement seen.
== END | disposition home or self-care (01) ==
LOC: RADUSWWP 07:32
PROVIDERS: ATTEND Surgery Plastic and Reconstructive Surgery
DX: R19.00 Intra-abdominal and pelvic swelling, mass and lump, unspecified site (principal); K42.9 Umbilical hernia without obstruction or gangrene
CPT/HCPCS: 76705

== ENCOUNTER 2023-06-04 09:05 | Day surgery (SDC) | payer BC ==
[2023-06-04 10:02] VITALS: RESP 18; TEMP 97.9
--- NOTE | 2023-06-04 10:12 | US ---
ULTRASOUND GUIDED FNA THYROID BIOPSY: CLINICAL HISTORY: Request for a nodule greater than 1 cm FNA. FINDINGS: The procedure was explained to the patient. The risks, complications, benefits and alternatives were discussed and any questions were answered. Informed consent was obtained. Patient was placed supin e on the ultrasound table and prepped and draped in the usual sterile fashion. Utilizing a 25 gauge needle, five passes were made into the requested left thyroid nodule. Patient was stable throughout the procedure. Pathology is pending. All elements of maximal barrier technique were utilized. IMPRESSION: 1. Successful ultrasound guided FNA thyroid biopsy.
[2023-06-04 10:33] VITALS: BP 125/77; PULSE 77
== END 2023-06-04 10:10 | disposition home or self-care (01) ==
LOC: RADPROMAIN 09:05
PROVIDERS: ATTEND Otolaryngology
DX: E04.1 Nontoxic single thyroid nodule (principal)
CPT/HCPCS: 10005; 88173; 88305

== ENCOUNTER 2023-07-09 10:17 | Day surgery (SDC) | payer BC ==
--- NOTE | 2023-07-09 07:36 | P.GSHP ---
History of Present Illness H&P Date: 07/09/23 CHIEF COMPLAINT: GERD and colon screen HISTORY OF PRESENT ILLNESS: The patient is a 43-year-old female who presents with gastroesophageal reflux disease and need for colon screen. Upper and lower endoscopy were offered for further evaluation and management. PAST MEDICAL HISTORY: Please see list. PAST SURGICAL HISTORY: Please see list. MEDICATIONS: Please see list. ALLERGIES: Please see list. SOCIAL HISTORY: No illicit drug use FAMILY HISTORY: No reports of Crohn disease or ulcerative colitis. REVIEW OF ORGAN SYSTEMS: CONSTITUTIONAL: No reports of fevers or chills. GI: Denies any blood in stools or constipation. PHYSICAL EXAM: VITAL SIGNS: Stable GENERAL: Well-developed pleasant in no acute distress. HEENT: No scleral icterus. Extraocular movements grossly intact. Moist buccal mucosa. NECK: Supple without lymphadenopathy. CHEST: Unlabored respirations. Equal bilateral excursions. CARDIOVASCULAR: Regular rate and rhythm. Distal 2+ pulses. ABDOMEN: Soft, nondistended. MUSCULOSKELETAL: No clubbing, cyanosis, or edema. ASSESSMENT: 1. Gastroesophageal reflux disease 2. Colon screen. PLAN: 1. Recommend proceeding with an upper and lower endoscopy Past Medical History Past Medical History: COPD, Fibromyalgia, GERD/Reflux, Thyroid Disorder Additional Past Medical History / Comment(s): heart murmur, , neck pain, fast heart rate sometimes. thyroid nodules. family members had kidney failure History of Any Multi-Drug Resistant Organisms: None Reported Past Surgical History: Tubal Ligation Additional Past Surgical History / Comment(s): neck surgery, lymph node biopsy recent biopsy for thyroid nodules Past Anesthesia/Blood Transfusion Reactions: No Reported Reaction Smoking Status: Current every day smoker - Past Family History Father Family Medical History: Cancer, Hypertension Additional Family Medical History / Comment(s): lung cancer Mother Family Medical History: Hyperlipidemia, Hypertension Medications and Allergies Home Medications Medication Instructions Recorded Confirmed Type Albuterol Inhaler [Ventolin Hfa 1 puff INHALATION TID PRN 05/26/23 07/07/23 History Inhaler] Cetirizine HCl [Zyrtec] 10 mg PO DAILY PRN 05/26/23 07/07/23 History Ibuprofen [Motrin] 600 mg PO Q8HR PRN 05/26/23 07/07/23 History Omeprazole [PriLOSEC] 20 mg PO AC-BRKFST 05/26/23 07/07/23 History Allergies Allergy/AdvReac Type Severity Reaction Status Date / Time codeine Allergy Rash/Hives Verified 07/07/23 10:11 Iodinated Contrast Media Allergy Rash/Hives Verified 07/07/23 10:11 tramadol HCl [From Ultracet] Allergy Itching Verified 07/07/23 10:11 duloxetine HCl AdvReac blurred Verified 07/07/23 10:11 [From Cymbalta] vision latex AdvReac Unknown Verified 07/07/23 10:26 midazolam [From Versed] AdvReac Unknown Verified 07/07/23 10:11 pregabalin [From Lyrica] AdvReac BLURRED Verified 07/07/23 10:11 VISION
[2023-07-09] MEDS: LACTATED RINGERS 1,000 ML IV ONE (10:36)
[2023-07-09] MEDS ORDERED: PROPOFOL 10 MG/ML 20 ML VIAL IV ONE (10:51)
[2023-07-09 10:56] VITALS: RESP 18; TEMP 98.2
--- NOTE | 2023-07-09 11:55 | P.PCN ---
Date of Procedure: 07/09/23 Description of Procedure: PREOPERATIVE DIAGNOSIS: Colonoscopy screening. POSTOPERATIVE DIAGNOSIS: Colonoscopy screening. OPERATION: Colonoscopy to the cecum, ileocecal valve and appendiceal orifice. SURGEON: Katya Ornelas MD. ANESTHESIA: MAC. INDICATIONS: The patient is a 43-year-old female who presents for colonoscopy screening. Benefits and risks were described and informed consent was obtained. DESCRIPTION OF PROCEDURE: The patient had undergone Sutab prep. The patient had been brought into the operating room and laid in the left lateral decubitus position. After adequate intravenous sedation, the rectum was examined with 2% lidocaine jelly. No external hemorrhoids were encountered. The rectal tone was within normal limits. No lesions were palpated in the rectal vault. An Olympus colonoscope was advanced until the cecum, ileocecal valve and appendiceal orifice were clearly viewed. The prep was excellent. No scattered diverticulosis was encountered. No colonic polyps were found. No evidence of focal colitis was found. Retroflexion of the scope demonstrated grade 1 internal hemorrhoids without active bleeding or inflammation. The colon was desufflated. The patient had tolerated the procedure well. Withdrawal time was over 6 minutes. FINDINGS: Aronchick preparation quality scale (1-5) Internal hemorrhoids, grade 1 No external prolapsed hemorrhoids. No arteriovenous malformations. No adenomatous polyps. No focal colitis. RECOMMENDATIONS: Lower endoscopy 10 years, 2033
--- NOTE | 2023-07-09 11:59 | P.PCN ---
Date of Procedure: 07/09/23 Description of Procedure: PREOPERATIVE DIAGNOSIS: Gastroesophageal reflux disease, uncontrolled POSTOPERATIVE DIAGNOSIS: Gastroesophageal reflux disease. Gastritis. Diaphragmatic hiatal hernia OPERATION: Esophagogastroduodenoscopy with biopsies along antrum and duodenum, esophagus SURGEON: Katya Ornelas MD ANESTHESIA: MAC. INDICATIONS: The patient is a 43-year-old female who presents with reflux disease. Benefits and risks of the procedure were described. Informed consent was obtained. DESCRIPTION: The patient was brought into the endoscopy suite and laid in the left lateral decubitus position. An Olympus gastroscope was passed along the posterior oropharynx down to the distal esophagus where the squamocolumnar junction was encountered at 37 cm from the incisors. The stomach was entered and no bile reflux was found. Additional findings are listed below. Biopsies with cold forceps were obtained of the antrum. The first through third portion of the duodenum was examined. Retroflexion of the scope confirmed Hill grade 3 lower esophageal valve. The squamocolumnar junction demonstrated LA grade B erosive esophagitis. The stomach was desufflated. The patient tolerated the procedure well. FINDINGS: Squamocolumnar junction 37 cm from the incisors. Diaphragmatic hiatus at 40 cm. Hiatal hernia, 3 cm Hill grade 3 lower esophageal valve. LA grade B erosive esophagitis. Biopsies obtained Biopsies obtained of the duodenum. Chronic gastritis with biopsies obtained. RECOMMENDATIONS: Upper endoscopy as needed. Plan - Discharge Summary Discharge Rx Participant: No New Discharge Prescriptions: Continue Omeprazole [PriLOSEC] 20 mg PO AC-BRKFST Albuterol Inhaler [Ventolin Hfa Inhaler] 1 puff INHALATION TID PRN PRN Reason: Shortness Of Breath Cetirizine HCl [Zyrtec] 10 mg PO DAILY PRN PRN Reason: Allergy Symptoms Ibuprofen [Motrin] 600 mg PO Q8HR PRN PRN Reason: Pain Discharge Medication List Albuterol Inhaler [Ventolin Hfa Inhaler] 1 puff INHALATION TID PRN 05/26/23 [History] Cetirizine HCl [Zyrtec] 10 mg PO DAILY PRN 05/26/23 [History] Ibuprofen [Motrin] 600 mg PO Q8HR PRN 05/26/23 [History] Omeprazole [PriLOSEC] 20 mg PO AC-BRKFST 05/26/23 [History] Follow up Appointment(s)/Referral(s): Katya Ornelas MD [STAFF PHYSICIAN] - 08/05/23 2:00 pm Patient Instructions/Handouts: Hiatal Hernia (DC) Activity/Diet/Wound Care/Special Instructions: Repeat colonoscopy 10 years2033 Discharge Disposition: HOME SELF-CARE
[2023-07-09 12:10] VITALS: BP 123/76; PULSE 71
== END 2023-07-09 12:19 | disposition home or self-care (01) ==
LOC: ORWHC2ENDO 10:17
PROVIDERS: ATTEND Surgery Plastic and Reconstructive Surgery
DX: Z12.11 Encounter for screening for malignant neoplasm of colon (principal); K64.0 First degree hemorrhoids; K44.9 Diaphragmatic hernia without obstruction or gangrene; K21.9 Gastro-esophageal reflux disease without esophagitis; J44.9 Chronic obstructive pulmonary disease, unspecified; M79.7 Fibromyalgia; E07.9 Disorder of thyroid, unspecified; F17.200 Nicotine dependence, unspecified, uncomplicated; Z88.8 Allergy status to other drugs, medicaments and biological substances; Z91.041 Radiographic dye allergy status; Z98.51 Tubal ligation status; Z79.51 Long term (current) use of inhaled steroids; Z88.6 Allergy status to analgesic agent; Z91.040 Latex allergy status; Z79.899 Other long term (current) drug therapy
CPT/HCPCS: 81025; 88305; 45378; 43239; J2704

== ENCOUNTER 2023-07-19 13:02 | Emergency (ER) | payer BC ==
--- NOTE | 2023-07-19 13:41 | ED ---
General Adult HPI - General Chief complaint: Skin/Abscess/Foreign Body Stated complaint: dog bite/nose injury Time Seen by Provider: 07/19/23 13:39 Source: patient Mode of arrival: ambulatory Limitations: no limitations - History of Present Illness Initial comments: Patient presents to the ED with her and son for evaluation. Patient states that her friend's fernie just recently bit her nose when she bent over to play with it. Patient is noted to have complete avulsion of part of the right side of her nose with exposed septum on examination. Patient denies any other bite site or injury. Patient denies headache, LOC, neck/back/extremity pain, chest pain, dyspnea, dizziness, abdominal pain, nausea or vomiting, or any other symptoms or complaints. Patient states that her tetanus is up-to-date. - Related Data Home Medications Medication Instructions Recorded Confirmed Albuterol Inhaler [Ventolin Hfa 1 puff INHALATION TID PRN 05/26/23 07/07/23 Inhaler] Cetirizine HCl [Zyrtec] 10 mg PO DAILY PRN 05/26/23 07/07/23 Ibuprofen [Motrin] 600 mg PO Q8HR PRN 05/26/23 07/07/23 Omeprazole [PriLOSEC] 20 mg PO AC-BRKFST 05/26/23 07/07/23 Allergies Allergy/AdvReac Type Severity Reaction Status Date / Time codeine Allergy Rash/Hives Verified 07/19/23 13:06 Iodinated Contrast Media Allergy Rash/Hives Verified 07/19/23 13:06 tramadol HCl [From Ultracet] Allergy Itching Verified 07/19/23 13:06 duloxetine HCl AdvReac blurred Verified 07/19/23 13:06 [From Cymbalta] vision latex AdvReac Unknown Verified 07/19/23 13:06 midazolam [From Versed] AdvReac Unknown Verified 07/19/23 13:06 pregabalin [From Lyrica] AdvReac BLURRED Verified 07/19/23 13:06 VISION Review of Systems ROS Statement: Those systems with pertinent positive or pertinent negative responses have been documented in the HPI. ROS Other: All systems not noted in ROS Statement are negative. Past Medical History Past Medical History: Fibromyalgia, GERD/Reflux Additional Past Medical History / Comment(s): heart murmur, swollen groin lymph nodes, neck pain, fast heart rate sometimes. thyroid nodules History of Any Multi-Drug Resistant Organisms: None Reported Past Surgical History: Tubal Ligation Additional Past Surgical History / Comment(s): neck surgery, lymph node biopsy Past Anesthesia/Blood Transfusion Reactions: No Reported Reaction Past Psychological History: Anxiety, Depression Smoking Status: Current every day smoker Past Alcohol Use History: None Reported Past Drug Use History: Marijuana - Past Family History Father Family Medical History: Cancer, Hypertension Additional Family Medical History / Comment(s): lung cancer Mother Family Medical History: Hyperlipidemia, Hypertension General Exam Limitations: no limitations General appearance: alert Eye exam: Present: normal appearance, PERRL, EOMI ENT exam: Present: normal oropharynx, mucous membranes moist, TM's normal bilaterally, other (Complete avulsion of part of the right side of the patient's nose with exposed nasal septum) Neck exam: Present: other (Trachea is in midline). Absent: tenderness Respiratory exam: Present: normal lung sounds bilaterally. Absent: respiratory distress, wheezes, rales, rhonchi, stridor Cardiovascular Exam: Present: regular rate, normal rhythm, normal heart sounds, other (Normal radial pulses bilaterally) GI/Abdominal exam: Present: soft. Absent: distended, tenderness, guarding Neurological exam: Present: alert, oriented X3, CN II-XII intact. Absent: motor sensory deficit Skin exam: Present: warm, dry, normal color Course Vital Signs 07/19/23 07/19/23 07/19/23 13:05 14:46 16:05 Temperature 99.5 F 98.2 F 98.0 F Pulse Rate 121 H 67 65 Respiratory 18 18 17 Rate Blood Pressure 177/95 113/72 111/63 O2 Sat by Pulse 100 99 98 Oximetry - Reevaluation(s) Reevaluation #1: 07/19/23 16:20 Case, H&P, CT report and ED management thus far were discussed with [facility] plastic surgeon Dr. Beckman, as well as [facility] ED physician Dr. Ivory. They have accepted private vehicle transfer to the [facility] ED for further evaluation and management. 07/19/23 16:25 Patient is aware of her CT report and my discussions as above, and she agrees with transfer to [facility] ED at this time.. Patient has declined ambulance transfer at this time, and she states that her will drive her to [facility] ED by private vehicle. Medical Decision Making - Medical Decision Making Was pt. sent in by a medical professional or institution (MIRTHA Zacarias, VETERINARY INSPECTOR, urgent care, hospital, or fpc...) When possible be specific @ -No Did you speak to anyone other than the patient for history (EMS, parent, family, police, friend...)? What history was obtained from this source @ -No Did you review nursing and triage notes (agree or disagree)? Why? @ -I reviewed and agree with nursing and triage notes Were old charts reviewed (outside hosp., previous admission, EMS record, old EKG, old radiological studies, urgent care reports/EKG's, fpc records)? Report findings @ -No old charts were reviewed Differential Diagnosis (chest pain, altered mental status, abdominal pain women, abdominal pain men, vaginal bleeding, weakness, fever, dyspnea, syncope, headache, dizziness, GI bleed, back pain, seizure, CVA, palpatations, mental health, musculoskeletal)? @ -Dog bite injury, soft tissue avulsion injury, nasal laceration, fracture, contusion EKG interpreted by me (3pts min.). @ -As above X-rays interpreted by me (1pt min.). @ -None done CT interpreted by me (1pt min.). @ -Noncontrast facial bones CT shows nasal soft tissue lacerations, but no fracture. I agree with the radiologist's interpretation as above. U/S interpreted by me (1pt. min.). @ -None done What testing was considered but not performed or refused? (CT, X-rays, U/S, labs)? Why? @ -None What meds were considered but not given or refused? Why? @ -None Did you discuss the management of the patient with other professionals (professionals i.e. MIRTHA Zacarias, VETERINARY INSPECTOR, lab, RT, psych nurse, oncology social work, cranberry farm supervisor, teacher, space officer, showcase trimmer)? Give summary @ -As above. Was smoking cessation discussed for >3mins.? @ -No Was critical care preformed (if so, how long)? @ -No Were there social determinants of health that impacted care today? How? (Homelessness, low income, unemployed, alcoholism, drug addiction, transportation, low edu. Level, literacy, decrease access to med. care, penitentiary, rehab)? @ -No Was there de-escalation of care discussed even if they declined (Discuss DNR or withdrawal of care, Hospice)? DNR status @ -No What co-morbidities impacted this encounter? (DM, HTN, Smoking, COPD, CAD, Cancer, CVA, ARF, Chemo, Hep., AIDS, mental health diagnosis, sleep apnea, morbid obesity)? @ -None Was patient admitted / discharged? Hospital course, mention meds given and route, prescriptions, significant lab abnormalities, going to OR and other pertinent info. @ -Patient has been treated with IV analgesics, IV fluids and IV antibiotics in the ED. Patient reports that her tetanus is up-to-date. Patient's facial bone CT does not demonstrate any fracture. Will transfer the patient to [facility] at this time for plastic surgery evaluation. Transfer has been accepted by [facility] plastic surgeon and ED physician. Patient has declined ambulance transfer, and her will be taking her there by private vehicle. Undiagnosed new problem with uncertain prognosis? @ -No Drug Therapy requiring intensive monitoring for toxicity (Heparin, Nitro, Insulin, Cardizem)? @ -No Were any procedures done? @ -No Diagnosis/symptom? @ -Dog bite to nose with nasal lacerations and avulsion Acute, or Chronic, or Acute on Chronic? @ -Acute Uncomplicated (without systemic symptoms) or Complicated (systemic symptoms)? @ -Default Side effects of treatment? @ -No Exacerbation, Progression, or Severe Exacerbation? @ -No Poses a threat to life or bodily function? How? (Chest pain, [place], [place], pneumonia, PE, COPD, DKA, ARF, appy, cholecystitis, CVA, Diverticulitis, Homicidal, Suicidal, threat to staff... and all critical care pts) @ -No - Radiology Data Noncontrast CT facial bones: 1. Multiple soft tissue lacerations of the nose, including lacerations extending through both nares bilaterally. 2. Soft tissue swelling and multiple small bubbles of subcutaneous gas. 3. No radiopaque foreign body or nasal bone fracture is seen. Disposition Clinical Impression: Open wound of face due to dog bite, Nasal injury Disposition: OTHER INSTITUTION NOT DEFINED Condition: Stable Is patient prescribed a controlled substance at d/c from ED?: No Referrals: Rico Sutton MD [Primary Care Provider] - 1-2 days Time of Disposition: 16:21 - Out of Hospital Transfer - Req. Specs Out of Hospital Transfer - Requested Specifics: Other Emergency Center ([facility] ED)
[2023-07-19] MEDS: HYDROmorphone 1 MG/ML 1 ML SYRINGE IVP STA ×2 (13:51→16:32)
[2023-07-19] MEDS: PIPERACILLIN-TAZOBACTAM 3.375 GM in SODIUM CHLORIDE 0.9% 100 ML IVPB STA (13:55)
[2023-07-19] MEDS: SODIUM CHLORIDE 0.9% 500 ML 500 ML IV ONE (13:55)
--- NOTE | 2023-07-19 15:47 | CT ---
EXAMINATION TYPE: CT facial bones wo con CT DLP: 350 mGycm, Automated exposure control for dose reduction was used. DATE OF EXAM: 07/19/2023 2:21 PM COMPARISON: . CLINICAL INDICATION:Female, 43 years old with history of dog bite/attack; PHH, dog bite to nose TECHNIQUE: Multiple unenhanced axial CT images were obtained of the facial bones soft tissue and bone windows. Coronal, axial and sagittal reformatted images were also provided in soft tissue and bone windows and submitted for interpretation. Additional 3-D reformatted images were obtained on a [employer] workstation. FINDINGS: There are multiple lacerations and probably partial absence of the soft tissues of the nose. Lacerati ons extend through both nares. There is soft tissue swelling and multiple bubbles of subcutaneous gas reaching the outer cortical surface of the nasal process of the maxilla, right more than left. There are a couple of bubbles of apparently preseptal gas in the orbital regions. No radiopaque foreign robbin dy or nasal bone fracture is seen. The orbits appear symmetric and intact. No evidence of intraorbital hematoma. No fracture of the other facial bones identified. The paranasal sinuses show no significant fluid acc umulation. IMPRESSION: 1. Multiple soft tissue lacerations of the nose, including lacerations extending through both nares bilaterally. 2. Soft tissue swelling and multiple small bubbles of subcutaneous gas. 3. No radiopaque foreign body or nasal bone fracture is seen.
[2023-07-19 16:27] VITALS: BP 111/63; PULSE 65; RESP 17; TEMP 98
[2023-07-19] MEDS ORDERED: HYDROmorphone 1 MG/ML 1 ML SYRINGE IVP STA (16:29)
== END 2023-07-19 16:41 | disposition other institution (70) ==
LOC: EC 13:02
DX: S01.21XA Laceration without foreign body of nose, initial encounter (principal); S01.25XA Open bite of nose, initial encounter; F17.200 Nicotine dependence, unspecified, uncomplicated; F12.90 Cannabis use, unspecified, uncomplicated; Z88.5 Allergy status to narcotic agent; Z91.040 Latex allergy status; Z88.8 Allergy status to other drugs, medicaments and biological substances; Z91.041 Radiographic dye allergy status; W54.0XXA Bitten by dog, initial encounter
CPT/HCPCS: 70486; 99285; 96365; 96375; 96376; J2543; J1170

== ENCOUNTER 2024-01-01 07:33 | Day surgery (SDC) | payer BC ==
[2023-12-31 10:27] VITALS: BMI 21.6
[~2024-01-01 07:33] MED LIST changes: -LACTATED RINGERS 1,000 ML IV SCH; +LIDOCAINE 1% (10MG/ML) FOR IV START INTRADERMA PRN; +fentaNYL (PF) 50 MCG/ML 2 ML AMP IVP PRN
[2024-01-01] MEDS: HEPARIN SODIUM,PORCINE 5,000 UNIT/ML 1 ML VIAL SQ PRN (08:18)
[2024-01-01] MEDS: DEXAMETHASONE SOD PHOSPHATE 4 MG/ML 1 ML VIAL IV ONE (08:18)
[2024-01-01] MEDS: ONDANSETRON 4 MG/2 ML VIAL IVP ONE (08:19)
--- NOTE | 2024-01-01 08:19 | P.GSHP ---
History of Present Illness H&P Date: 01/01/24 CHIEF COMPLAINT: Paraesophageal hiatal hernia with gastroesophageal reflux disease. HISTORY OF PRESENT ILLNESS: The patient is a 43-year-old female who presents with symptomatic paraesophageal hiatal hernia over one year with gastroesophageal reflux disease. She has completed upper endoscopy workup. Now she presents for surgical intervention. PAST MEDICAL HISTORY: Please see list. PAST SURGICAL HISTORY: Please see list. MEDICATIONS: Please see list. ALLERGIES: Please see list. SOCIAL HISTORY: No illicit drug use. Patient has stopped tobacco abuse FAMILY HISTORY: No reports of Crohn disease or ulcerative colitis. REVIEW OF ORGAN SYSTEMS: CONSTITUTIONAL: No reports of fevers or chills. GI: Denies any blood in stools or constipation. PHYSICAL EXAM: VITAL SIGNS: Stable GENERAL: Well-developed pleasant and in no acute distress. HEENT: No scleral icterus. Extraocular movements grossly intact. Moist buccal mucosa. NECK: Supple without lymphadenopathy. CHEST: Unlabored respirations. Equal bilateral excursions. CARDIOVASCULAR: Regular rate and rhythm. Distal 2+ pulses. ABDOMEN: Soft, nondistended. No peritoneal signs. MUSCULOSKELETAL: No clubbing, cyanosis, or edema. SKIN: Well-perfused. Good skin turgor. REPORTS: Upper endoscopy demonstrates paraesophageal hiatal hernia ASSESSMENT: 1. Diaphragmatic paraesophageal hiatal hernia with severe gastroesophageal reflux disease. PLAN: 1. Recommend proceeding with a robotic paraesophageal hiatal hernia with possible mesh. 2. Benefits and risks of surgical intervention was discussed including possibility of open technique. 3. Inpatient hospitalization recommended of 2 nights 4. DVT prophylaxis. 5. Antibiotic prophylaxis. 6. She has also completed a very low caloric high-protein diet to address underlying hepatomegaly. 7. Non narcotic pain management including abdominal wall block described 8. Blood sugar glucose described. 9. Patient has been tobacco free for several months. Maintaining tobacco cessation described. Past Medical History Past Medical History: COPD, Fibromyalgia, GERD/Reflux, Osteoarthritis (OA) Additional Past Medical History / Comment(s): Heart murmur, neck pain, fast heart rate sometimes, thyroid nodules, "early emphysema", "circulation problems sometimes in hands". History of Any Multi-Drug Resistant Organisms: None Reported Past Surgical History: Tubal Ligation Additional Past Surgical History / Comment(s): Neck surgery, lymph node biopsy, nasal surgery. Past Anesthesia/Blood Transfusion Reactions: No Reported Reaction Smoking Status: Former smoker - Past Family History Father Family Medical History: Cancer, Hypertension Additional Family Medical History / Comment(s): Lung cancer. Mother Family Medical History: Hyperlipidemia, Hypertension Medications and Allergies Home Medications Medication Instructions Recorded Confirmed Type Albuterol Inhaler [Ventolin Hfa 1 puff INHALATION TID PRN 05/26/23 12/31/23 History Inhaler] Cetirizine HCl [Zyrtec] 10 mg PO DAILY PRN 05/26/23 12/31/23 History Ibuprofen [Motrin] 600 mg PO Q8HR PRN 05/26/23 12/31/23 History Omeprazole [PriLOSEC] 20 mg PO AC-BRKFST 05/26/23 12/31/23 History Allergies Allergy/AdvReac Type Severity Reaction Status Date / Time codeine Allergy Rash/Hives Verified 12/31/23 10:10 Iodinated Contrast Media Allergy Rash/Hives Verified 12/31/23 10:10 tramadol HCl [From Ultracet] Allergy Itching Verified 12/31/23 10:10 duloxetine HCl AdvReac blurred Verified 12/31/23 10:10 [From Cymbalta] vision latex AdvReac Unknown Verified 12/31/23 10:10 midazolam [From Versed] AdvReac Unknown Verified 12/31/23 10:10 pregabalin [From Lyrica] AdvReac BLURRED Verified 12/31/23 10:10 VISION Surgical - Exam Vital Signs Temp Pulse Resp BP Pulse Ox 97.9 F 78 18 121/60 98 01/01/24 07:48 01/01/24 07:48 01/01/24 07:48 01/01/24 07:48 01/01/24 07:48
[2024-01-01] MEDS: SCOPOLAMINE 1 MG/72 HR PATCH TRANSDERM STA (08:20)
[2024-01-01] MEDS: ACETAMINOPHEN TAB 500 MG TAB PO PRN (08:20)
[2024-01-01] MEDS: LACTATED RINGERS 1,000 ML IV SCH (08:25)
[2024-01-01 08:37] LABS: Basophils % (A) 1 %; Eosinophils % (A) 1 %; HCT 38.1 % (34.0-46.0); HGB 13.2 gm/dL (11.4-16.0); Lymphocytes # (A) 1.8 k/uL (1.0-4.8); Lymphocytes % (A) 48 %; MCH 32.1 pg (25.0-35.0); MCHC 34.6 g/dL (31.0-37.0); MCV 92.7 fL (80.0-100.0); Mean Platelet Volume 8.2; Monocytes # (A) 0.2 k/uL (0-1.0); Monocytes % (A) 5 %; Neutrophils # (A) 1.6 k/uL (1.3-7.7); Neutrophils % (A) 43 %; Platelet Count 209 k/uL (150-450); RDW 12.3 % (11.5-15.5); WBC 3.8 k/uL (3.8-10.6)
[2024-01-01] MEDS: IV FLUID CONTINUATION 1,000 ML IV ONE (08:39)
[2024-01-01] MEDS ORDERED: ROCURONIUM 10 MG/ML (5 ML VIAL) IV ONE (09:14)
[2024-01-01] MEDS ORDERED: fentaNYL (PF) 50 MCG/ML 2 ML AMP ONE (09:14)
[2024-01-01] MEDS ORDERED: LIDOCAINE 1% INJ 10MG/ML (20 ML MDV) ONE (09:14)
[2024-01-01] MEDS ORDERED: GLYCOPYRROLATE 0.2 MG/ML 2 ML VIAL ONE (09:14)
[2024-01-01] MEDS ORDERED: PROPOFOL 10 MG/ML 20 ML VIAL IV ONE (09:14)
[2024-01-01] MEDS ORDERED: SUCCINYLCHOLINE CHLORIDE 200 MG/10 ML VIAL IV ONE (09:14)
[2024-01-01] MEDS ORDERED: NEOSTIGMINE 1 MG/ML 10 ML VIAL ONE (09:14)
[2024-01-01] MEDS: LIDOCAINE 1%-EPI 1:100,000 20 ML VIAL SQ ONE (09:40)
[2024-01-01 09:58] LABS: ALT 15 U/L (4-34); AST 23 U/L (14-36); African American GFR (CKD) >90 (>60 ml/min/1.73 sqM); Albumin 4.1 g/dL (3.5-5.0); Alkaline Phosphatase 24 U/L (38-126); Anion Gap 8 mmol/L; Blood Urea Nitrogen 22 mg/dL (7-17); Calcium 9.6 mg/dL (8.4-10.2); Carbon Dioxide 24 mmol/L (22-30); Chloride 105 mmol/L (98-107); Glucose 76 mg/dL (74-99); Non-African American GFR(CKD) >90 (>60 ml/min/1.73 sqM); Potassium 3.9 mmol/L (3.5-5.1); Sodium 137 mmol/L (137-145); Total Bilirubin 0.7 mg/dL (0.2-1.3); Total Protein 6.6 g/dL (6.3-8.2)
[2024-01-01] MEDS: LACTATED RINGERS 1,000 ML IV ONE (11:10)
[2024-01-01 11:38] VITALS: RESP 16; TEMP 97.6
--- NOTE | 2024-01-01 11:54 | P.OP ---
Date of Procedure: 01/01/24 Description of Procedure: SURGEON: SILVERIO OROURKE MD PREOPERATIVE DIAGNOSES: 1. Diaphragmatic hiatal hernia 2. Gastroesophageal reflux disease POSTOPERATIVE DIAGNOSES: 1. Midline paraesophageal diaphragmatic hiatal hernia, 3 cm 2. Gastroesophageal reflux disease OPERATION: 1. Robotic-assisted da Eric Xi laparoscopic repair of incarcerated paraesophageal hiatal hernia 3 x 3 cm without mesh 2. Intraoperative esophagogastroduodenoscopy ANESTHESIA: General with local anesthetic. ESTIMATED BLOOD LOSS: 5 mL SPECIMENS REMOVED: None COMPLICATIONS: None. FINDINGS: 1. Hiatal defect 3 x 3 cm 2. Hill grade 1 lower esophageal valve after completion of procedure 3. Foreign body within the stomach identified with posterior filling along the molars intact 4. Adhesions about the hiatus lysed causing distortion of GE junction reduced 5. Multiple redundant liver lobes adding complexity of case with small area toward INDICATIONS: The patient is a 43-year-old female who presents with epigastric abdominal pain, gastroesophageal reflux disease poorly controlled despite medic ations, history of upper including lower esophageal sphincters from reflux and a symptomatic diaphragmatic hiatal hernia. SGiven the severity of her symptoms, particularly of her symptomatic diaphragmatic hiatal hernia, she had elected for surgical intervention. Benefits and risks including bleeding, infection, recurrence, dysphagia, injury to the lung, need for further surgery was described at length. Informed consent was obtained. DESCRIPTION: The patient was brought into the operating room and placed in supine position. Preoperatively she had received subcutaneous DVT prophylaxis. After general induction, the abdomen was prepped and draped in standard sterile fashion. The patient had previously voided prior to coming to the operating room. Ioban draping was placed along the abdomen. A timeout protocol was confirmed with the surgical team, for which the patient's name, procedure to be performed including DVT prophylaxis with bilateral SCDs, and preoperative antibiotics were also confirmed. A robotic da Eric Xi system was prepped and primed. At 12 cm from the xiphoid to just below the umbilicus, proposed port sites were marked with indelible marker along the left axillary line, left mid-clavicular line with each ports were marked 10 cm from each other. A 5 mm 0 degrees laparoscopic trocar entry was performed along the left upper quadrant. The abdomen was insufflated to 15 mmHg pressure she tolerated well. Diagnostic laparoscopy demonstrated no injury to bowel, viscera, or mesentery. The liver surface was unremarkable. No injury had occurred to the small bowel or viscera. Next, one 8 mm robotic port was placed along the right upper abdomen. An 8-mm port was were placed along the left mid abdomen. The camera 12-mm port extended length was maintained along the epigastrium via the hernia defect. Another 8 mm port was placed along the left upper abdominal wall after exchanging the 5 mm port. Please note that the ports were placed at least 20 cm away from the target anatomy. Care was taken to check that each robotic arm were safely away from collision with the bed or the patient. At the epigastrium, a medium sized Oj liver retractor was placed under direct visualization with the Iron Can Closing Machine Tender placed under the right shoulder of the patient. The patient was repositioned in reverse Trendelenburg position and 21 after lowering the bed. The robot was docked above the head of the patient. Using a grasper for arm 3, a grasper for arm 2, including hook cautery for arm 1, the robotic system was docked and primed as described. Instruments were interchanged by the security assistant . I had sat at the console. The gastrohepatic ligament was cleaved using a vessel sealer. Next, the phrenoesophageal ligament was mobilized and the distal esophagus was mobilized circumferentially without injury to the bilateral vagi nerves. The left and right crura was identified. A midline hiatal hernia was found. Mobilization of the distal esophagus into the mediastinum was performed without injury to the vagus nerves. The measured defect was consistent with at least 3 cm axial length and 2 cm width. After extensive dissection, the distal esophagus of at least 2 cm was brought into the abdominal cavity. Once the hiatus and crura was dissected, 2-0 VLOC nonabsorbable suture was placed initially to reapproximate the diaphragmatic hiatus posteriorly. I went to the head of the bed to perform intraoperative esophagogastroduodenoscopy. An Olympus gastroscope was passed through posterior oropharynx, where the GE junction was found distal to the diaphragmatic hiatus. The intra-abdominal esophageal length obtained during the case was over 2 cm. The stomach was entered including duodenum. Retroflexion of the scope confirmed a Hill grade 1 lower esophageal valve. The squamocolumnar junction was at 35 cm. Diaphragmatic hiatus was at 32 cm. The stomach had been desufflated. No evidence of leaks were found either of the mucosal defects of the esophagus or stomach. To address history of upper including lower esophageal strictures, 56-S[place] bougie was placed for 1 minute and withdrawn. This concluded the endoscopic portion of the case. The robot was undocked from the patient. I re-scrubbed into the case. All instruments and pneumoperitoneum were evacuated from the abdominal cavity. Incisions were reapproximated using 4-0 Monocryl in an interrupted subcuticular fashion. Liquid glue was applied to the skin. Local anesthetic was infiltrated in all wounds for postop analgesia. Multiple intra-abdominal films were obtained. At the end of the procedure, needle, sponge, and instrument count was verified correct by the surgical supervisor. The patient had tolerated the procedure well and was taken to the postanesthesia unit in stable condition. Intraoperative films were reviewed with the patient's family who was pleased with the level of care.
[2024-01-01] MEDS ORDERED: METOCLOPRAMIDE 5 MG/ML 2 ML VIAL IVP SCH (12:00)
[2024-01-01] MEDS: HYDROmorphone 0.5 MG/0.5 ML SYRINGE IVP PRN (12:05)
[2024-01-01] MEDS: ONDANSETRON 4 MG/2 ML VIAL IVP PRN (12:16)
[2024-01-01 14:44] VITALS: BP 127/76; PULSE 85
[2024-01-01] MEDS ORDERED: HEPARIN SODIUM,PORCINE 5,000 UNIT/ML 1 ML VIAL SQ SCH (21:00)
--- NOTE | 2024-01-04 14:28 | P.PN ---
Progress Note - Text Progress Note Date: 01/04/24 Patient contacted at home. Voicemail message was left to reiterate discharge instructions including Luisa clear liquid/full liquid diet for 2 weeks until January 15. Lifting restrictions of 4 pounds for 4 weeks until January 31. Patient advised to avoid any exposure to nicotine or tobacco abuse products which will impair her surgery. Follow-up telehealth in 72 hours. Time of voicemail [id number]
--- NOTE | 2024-01-14 13:48 | FL ---
EXAMINATION TYPE: FL esophagus cervic/pharynx DATE OF EXAM: 01/01/2024 3:05 PM CLINICAL INDICATION:Female, 43 years old with history of rule out leak/obstruction; COMPARISON: None TECHNIQUE: The procedure was explained and patient history elicited. All patient questions were ans wered prior to start of procedure. A actuarial analyst radiograph of the abdomen was also reviewed. Multiple flu oroscopic spot images of the esophagus, stomach were obtained following ingestion 2 oz of Liquid EZ P aque given. Fluoroscopic time: 10 seconds min Fluoroscopic images: 0 Radiographs taken: 65 DAP: Not reported [id number] FINDINGS: Contrast is seen flowing to the gastroesophageal junction.. No evidence extravasation of co ntrast. Mildly delayed gastroesophageal junction. IMPRESSION: No evidence for high-grade obstruction or evidence for leak. [facility], , 01/14/2024 1:46 PM
== END 2024-01-01 16:39 | disposition home or self-care (01) ==
LOC: OR 07:33 → 4SSUR 11:17 → OR 16:39
PROVIDERS: ATTEND Surgery Plastic and Reconstructive Surgery
DX: K44.0 Diaphragmatic hernia with obstruction, without gangrene
CPT/HCPCS: 43281; 74210; 80053; 81025; 85025; S2900